=== PATIENT | female | born 2005 | race Caucasian/White ===

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

== ENCOUNTER 2024-10-18 22:23 | Emergency (ER) | payer OTHER, BC ==
[2024-10-18] MEDS ORDERED: Lidocaine 2% with EPINEPHrine 1:100,000 20 ML MDV INFILT ONE (22:24)
[2024-10-19 00:47] VITALS: BP 104/66; PULSE 79
== END 2024-10-18 23:31 | disposition home or self-care (01) ==
LOC: FB.ED 22:23
DX: S51.012A Laceration without foreign body of left elbow, initial encounter (principal); Z91.040 Latex allergy status; W22.8XXA Striking against or struck by other objects, initial encounter
CPT/HCPCS: 12001; 99282; 99283